=== PATIENT | female | born 2000 | race Caucasian/White ===

== ENCOUNTER 2022-09-01 21:26 | Emergency (ER) | payer BC ==
[~2022-09-01] VITALS: Ht 170.2 cm; Wt 83.9 kg
--- NOTE | 2022-09-01 22:00 | NUR ---
After being triaged, patient was placed back in the waiting room due to no beds available in the ER and patient in the hallway.
[2022-09-01 22:40] LABS: *BLOOD, URINE 2+ (NEGATIVE); *CLARITY,URINE CLEAR (CLEAR); *KETONES,URINE 4+ (NEGATIVE); LEUKOCYTE ESTERASE ,URINE TRACE (NEGATIVE); NITRITE, URINE NEGATIVE (NEGATIVE); UGLUCOSE NEGATIVE (NEGATIVE)
[2022-09-01 23:09] LABS: *BILIRUBIN,URIN 1+ (NEGATIVE); *COLOR,URINE HAZY (YELLOW)
[2022-09-01 23:10] LABS: *URINE HCG, QUAL NEGATIVE (NEGATIVE); BACTERIA,URINE MODERATE /HPF (NONE SEEN); SQUAMOUS EPITHELIAL CELL,UR MODERATE /HPF (NONE SEEN)
--- NOTE | 2022-09-02 | NUR ---
Patient was called to have vital taken but was not present in the waiting room.
--- NOTE | 2022-09-02 01:00 | NUR ---
PATIENT WAS CALLED TO BE REASSES BUT WAS NOT PRESENT IN THE WAITING ROOM OR OUTSIDE OF ER. PATIENT WAS TRIAGED BUT NOT SEEN BY ERMD.
== END 2022-09-02 01:00 | disposition left against medical advice (07) ==
LOC: ER 21:28
DX: Z53.21 Procedure and treatment not carried out due to patient leaving prior to being seen by health care provider (principal)
CPT/HCPCS: 84703